=== PATIENT | male | born 1980 | race Caucasian/White ===

== ENCOUNTER 2021-05-17 10:25 | Emergency (ER) | payer OTHER ==
[~2021-05-17] VITALS: Ht 177.8 cm; Wt 117.9 kg
[2021-05-17 10:25] VITALS: BP 195/109
[~2021-05-17 10:25] MED LIST: IBUPROFEN 200200 M1 PO
== END 2021-05-17 11:40 | disposition home or self-care (01) ==
LOC: ER 10:25
DX: S93.402A Sprain of unspecified ligament of left ankle, initial encounter (principal); W03.XXXA Other fall on same level due to collision with another person, initial encounter; Y93.02 Activity, running; Y92.39 Other specified sports and athletic area as the place of occurrence of the external cause; Y99.8 Other external cause status